=== PATIENT | male | born 2000 | race Caucasian/White ===

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

== ENCOUNTER → 2020-05-24 16:09 | Outpatient (CLI) | payer BC, SELFPAY ==
[2020-05-24 18:02] LABS: Basophils # 0.1 K/mm3 (0-0.2); Basophils % 0.8 % (0.1-2.0); Eosinophils # 0.1 K/mm3 (0.0-0.4); Eosinophils % 0.6 % (0.1-12.0); Hematocrit 45.3 % (42.0-52.0); Hemoglobin 15.1 g/dL (14.1-18.0); Lymphocytes # 1.3 K/mm3 (0.7-4.5); Lymphocytes % 15.6 % (10-50); Mean Corpuscular HGB Conc 33.5 g/dL (31.8-35.4); Mean Corpuscular Hemoglobin 29.5 pg (27.0-31.2); Mean Corpuscular Volume 88.2 fl (80-94); Mean Platelet Volume 8.7 fl (7.4-10.4); Monocytes # 0.8 K/mm3 (0.1-1.0); Monocytes % 9.6 % (1.7-9.3); Neutrophils # 6.1 K/mm3 (1.8-7.8); Neutrophils % 73.4 % (37.0-80.0); Platelet Count 245 K/mm3 (142-424); Red Blood Count 5.13 M/mm3 (4.60-6.20); Red Cell Distribution Width 13.4 % (11.5-17.5); White Blood Count 8.3 K/mm3 (4.5-13.0)
[2020-05-25 00:27] LABS: Strep Scrn Group A (Rapid) Negative (Negative)
== END ==
PROVIDERS: PCP Family Medicine; Visit Provider Family Medicine
DX: Z20.822 Contact with and (suspected) exposure to COVID-19 (principal); U07.1 COVID-19
CPT/HCPCS: 36415; 85025; 87275; 87276; 87430; U0003

== ENCOUNTER 2022-12-05 13:17 | Emergency (ER) | payer BC, SELFPAY ==
[2022-12-05 13:30] VITALS: BP 149/83; PULSE 64; RESP 18; TEMP 36.8; O2SAT 100; BMI 35.2
--- NOTE | 2022-12-05 13:33 | EXP.UTC ---
Discharge Plan Disposition Patient Disposition: Home, Self-Care Condition: Fair Referrals Follow up/Referrals: Jesus Daniel MD [Primary Care Provider] - See instructions Activity Restrictions/Add. Instructions Additional Instructions/Restrictions: Go immediatly to [facility] at [address] [place] [address]. Make sure you take your insurance cards with you. 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 He has had right eye redness, excessive tearing, and discomfort since then. His tdap is up to date. He denies significant change in his vision. Related Data Allergies Allergy/AdvReac Type Severity Reaction Status Date / Time No Known Allergies Allergy Verified 12/05/22 13:44 [facility] Disclaimer: The information contained in this section may have been updated after the patient was seen, as this information can be updated by other users. Medical History (Updated 12/05/22 @ 14:22 by Lauro Peralta APRN) Abnormal EKG Cardiomyopathy Social History Smoking Status: Current every day smoker tobacco type: cigarettes packs per day: 1 second hand exposure: Yes alcohol intake: never substance use type: denies use current occupational status: student Travel in the last 8 weeks: Inside the [facility] household members: family housing: house current occupational exposures/hazards: No caffeine: Yes ROS Obtained: Yes All systems reviewed & no additional complaints except as documented Constitutional Constitutional: Denies chills and Denies fever(s) Eyes Eyes: Reports as per HPI, Denies blind spots, Denies blurry vision, Denies change in vision, Denies diplopia and Reports eye discharge ENT Ears, Nose, Mouth, and Throat: Denies dizziness, Denies otalgia and Denies sore throat Cardiovascular Cardiovascular: Denies chest pain Respiratory Respiratory: Denies shortness of breath, Denies chest congestion, Denies cough, Denies stridor and Denies wheezing Gastrointestinal Gastrointestingal: Denies nausea or vomiting Musculoskeletal Musculoskeletal: Reports system reviewed and no additional complaints, except as documented and Denies arthralgias Integumentary/Breasts Skin/Breast: Denies rash Neurologic Neurologic: Denies dizziness and Denies paresthesias Allergic/Immunologic Allergic/Immunologic: Denies wheezing Physical Exam General General appearance: alert and in no apparent distress Head Head exam: atraumatic, normocephalic and normal inspection Eye Eye exam: Present PERRL and EOMI Expanded Eye Exam Eyelids: left: normal inspection and right: erythema Pupils: Left: size (2), Right: size (2) and Bilateral: regular, round and reactive Sclera/Conjunctival: left: normal inspection and right: injection and foreign body Visual acuity (R) = 20/: 30 Visual acuity (L) = 20/: 30 With correction: No ENT ENT exam: Present normal exam, normal oropharynx, mucous membranes moist, TM's normal bilaterally and normal external ear exam Neck Neck exam: Present normal inspection, full ROM and trachea midline; Absent meningismus or lymphadenopathy Chest Chest inspection: Present normal inspection and symmetric chest wall rise; Absent tenderness Respiratory Respiratory exam: Present normal lung sounds bilaterally; Absent respiratory distress Cardiovascular Cardiovascular exam: Present regular rate and normal rhythm; Absent JVD Abdominal Exam Abdominal exam: Present soft and n
[2022-12-05 14:25] VITALS: BP 149/83; PULSE 64; RESP 18; TEMP 36.8; O2SAT 100
== END 2022-12-05 14:25 | disposition home or self-care (01) ==
PROVIDERS: Emergency Provider Nurse Practitioner Family; PCP Family Medicine
DX: T15.01XA Foreign body in cornea, right eye, initial encounter (principal); F17.210 Nicotine dependence, cigarettes, uncomplicated; W45.8XXA Other foreign body or object entering through skin, initial encounter
CPT/HCPCS: 99204; 99212; G0463

== ENCOUNTER 2023-11-28 22:13 | Emergency (ER) | payer BC, SELFPAY ==
--- NOTE | 2023-11-28 22:40 | ED_ITS ---
<Statement entered by Jodi Muir MD - 11/28/23 23:45> I was consulted by the JUAN DIEGO, and we discussed the complexity of problems being addressed. I approved the treatment and management plan for this patient's care in the emergency department, thus performing a substantive portion of the medical decision making. Jodi Muir MD Discharge Plan Disposition Chief Complaint: Extremity Injury, Upper Referrals Follow up/Referrals: Jesus Daniel MD [Primary Care Provider] - See instructions Print Language Print Language: Czech Discharge ED Provider: Jodi Muir General Adult HPI General Chief complaint: Extremity Injury, Upper Stated complaint: AO09/ LT hand burn Time Seen by Provider: 11/28/23 22:36 History of Present Illness HPI narrative: 23-year-old male presents to the ED today for complaint of burning his left hand on exhaust. Says it feels like it is still burning. He has had ice applied to the burn since it happened. No open areas. Related Data Allergies Allergy/AdvReac Type Severity Reaction Status Date / Time No Known Allergies Allergy Verified 12/05/22 13:44 [facility] Disclaimer: The information contained in this section may have been updated after the patient was seen, as this information can be updated by other users. Medical History (Updated 12/05/22 @ 14:22 by Lauro Peralta APRN) Abnormal EKG Cardiomyopathy Social History Smoking Status: Current every day smoker tobacco type: cigarettes packs per day: 1 second hand exposure: Yes alcohol intake: never substance use type: denies use current occupational status: student Travel in the last 8 weeks: Inside the [place] household members: family housing: house current occupational exposures/hazards: No caffeine: Yes ROS Obtained: Yes Systems reviewed as appropriate & no additional complaints except as documented Physical Exam General General appearance: alert and in no apparent distress Head Head exam: atraumatic and normocephalic Eye Eye exam: Present normal appearance, PERRL and EOMI ENT ENT exam: Present normal exam, normal oropharynx and mucous membranes moist Neck Neck exam: Present normal inspection, full ROM and trachea midline Chest Chest inspection: Present normal inspection Respiratory Respiratory exam: Present normal lung sounds bilaterally Cardiovascular Cardiovascular exam: Present regular rate, normal rhythm, normal heart sounds, +S1 and +S2 Extremities Exam Extremities exam: Present normal inspection, full ROM, tenderness (To left hand palm, burn to area no open areas), normal capillary refill, edema and other (Left hand palmar aspect with skin waterlogged and peeling. Pulses positive range of motion good no richey on the fingertips richey only on the palmar aspect of the hand) Neurological Exam Neurological exam: Present alert, oriented X3 and normal gait Skin Skin exam: Present warm, intact and erythema (Palm of left hand with some white areas but no blistering present no open areas) Medical Decision Making Medical Records Screening: Per USPSTF and CDC recommendations, given the prevalence of disease in our region, it is our hospital?s policy to screen for HIV and viral Hepatitis for all patients aged 18 and over and those with ongoing risk factors. Temo Inquiry Pt receiving controlled substance: No Vital Signs: 11/28/23 22:45 Temperature 98.9 F Temperature Source Oral Pulse Rate [Left Radial] 82 Respiratory Rate 18 Blood Pressure [Right Arm] 149/105 H Blood Pressure Mean [Right Arm] 119 Blood Pressure Source [Right Arm] Automatic Cuff Blood Pressure Position [Right Arm] Sitting 02 Sat by Pulse Oximetry 97 Oxygen Delivery Method Room Air Orders (Tests/Meds): ED MEDICATIONS Discontinued Medications Generic Name Dose Route Start Last Admin Trade Name Freq PRN Reason Stop Dose Admin Hydrocodone Bitart/Acetaminophen 1 tab 11/28/23 22:42 Hydrocodone/Apap 5/325 Mg Tablet PO 11/28/23 22:43 ONCE ONE Hydrocodone Bitart/Acetaminophen 2 tab 11/28/23 22:55 Hydrocodone/Apap 5/325 Mg Tablet PO 11/28/23 22:56 ONCE ONE Bacitracin 1 gm 11/28/23 22:40 Bacitracin Zinc Oint 30gm Tube TP 11/28/23 22:41 ONCE ONE Medical Decision Narrative: Insert review patient is a 23-year-old male presenting to the emergency department for evaluation of left hand burn. Patient is [hemodynamically stable and nontoxic-appearing upon arrival, afebrile]. Differential diagnosis includes burn to left hand. Initial inventions include cleaning richey with Hibiclens and warm water. Upon repeat evaluation Due to this [additional interventions, patient is appropriate for discharge, patient requires admission, etc.]. Critical Care Critical Care Time Critical Care Time: No
[2023-11-28 22:45] VITALS: BP 149/105; PULSE 82; RESP 18; TEMP 37.2; O2SAT 97; BMI 37.5
[2023-11-28] MEDS: HYDROCODONE/APAP 5/325 MG TABLET 2 TAB PO (23:15)
[2023-11-28] MEDS: BACITRACIN ZINC OINT 30GM TUBE TP (23:15)
[2023-11-28 23:39] VITALS: BP 143/88; PULSE 79; RESP 18; TEMP 37.2; O2SAT 98
== END 2023-11-28 23:41 | disposition home or self-care (01) ==
PROVIDERS: Emergency Provider Student in an Organized Health Care Education/Training Program; PCP Family Medicine
DX: T23.052A Burn of unspecified degree of left palm, initial encounter (principal); I42.9 Cardiomyopathy, unspecified; F17.210 Nicotine dependence, cigarettes, uncomplicated; X19.XXXA Contact with other heat and hot substances, initial encounter; Y92.9 Unspecified place or not applicable
CPT/HCPCS: 99283